=== PATIENT | male | born 1950 | race Caucasian/White ===

== ENCOUNTER 2016-07-08 13:33 | Outpatient (CLI) | payer BC | END 2016-07-08 13:34 | disposition home or self-care (01) | DX: M17.11 Unilateral primary osteoarthritis, right knee (principal); M19.012 Primary osteoarthritis, left shoulder; M25.812 Other specified joint disorders, left shoulder; M25.561 Pain in right knee; M25.512 Pain in left shoulder ==

== ENCOUNTER 2017-03-07 12:58 | Outpatient (CLI) | payer MEDICARE, BC | END 2017-03-07 12:59 | disposition home or self-care (01) | LOC: SC 12:58 | PROVIDERS: ATTEND Internal Medicine Pulmonary Disease | DX: G47.33 Obstructive sleep apnea (adult) (pediatric) (principal); I10 Essential (primary) hypertension; I50.9 Heart failure, unspecified; I25.10 Atherosclerotic heart disease of native coronary artery without angina pectoris | CPT/HCPCS: 99203; G0463; 99212 ==

== ENCOUNTER 2017-04-03 19:19 | Outpatient (CLI) | payer MEDICARE, BC | END 2017-04-03 19:20 | disposition home or self-care (01) | LOC: SC 19:19 | PROVIDERS: ATTEND Internal Medicine Pulmonary Disease | DX: G47.33 Obstructive sleep apnea (adult) (pediatric) (principal); Z68.42 Body mass index [BMI] 45.0-49.9, adult | CPT/HCPCS: 95810 ==

== ENCOUNTER 2017-04-13 14:50 | Outpatient (CLI) | payer MEDICARE, BC | END 2017-04-13 14:51 | disposition home or self-care (01) | LOC: SC 14:50 | PROVIDERS: ATTEND Nurse Practitioner Family | DX: G47.33 Obstructive sleep apnea (adult) (pediatric) (principal) | CPT/HCPCS: 99214; G0463; 99212 ==

== ENCOUNTER 2017-05-30 10:23 | Outpatient (CLI) | payer MEDICARE, BC | END 2017-05-30 10:24 | disposition home or self-care (01) | LOC: SC 10:23 | PROVIDERS: ATTEND Nurse Practitioner Family | DX: G47.33 Obstructive sleep apnea (adult) (pediatric) (principal) | CPT/HCPCS: 99214; G0463; 99212 ==

== ENCOUNTER 2017-07-10 09:10 | Outpatient (CLI) | payer MEDICARE, BC | END 2017-07-10 09:11 | disposition home or self-care (01) | LOC: RT 09:10 | PROVIDERS: ATTEND Internal Medicine Cardiovascular Disease | DX: R06.02 Shortness of breath (principal) | CPT/HCPCS: 94010; 94729 ==

== ENCOUNTER 2017-08-01 09:49 | Outpatient (CLI) | payer MEDICARE, BC | END 2017-08-01 09:50 | disposition home or self-care (01) | LOC: SC 09:49 | PROVIDERS: ATTEND Nurse Practitioner Family | DX: G47.33 Obstructive sleep apnea (adult) (pediatric) (principal) | CPT/HCPCS: 99214; G0463; 99212 ==

== ENCOUNTER 2017-08-25 12:39 | Outpatient (CLI) | payer MEDICARE, BC | END 2017-08-25 12:40 | disposition home or self-care (01) | LOC: NS 12:39 | PROVIDERS: ATTEND Physician Assistant | DX: Z71.3 Dietary counseling and surveillance (principal); E11.9 Type 2 diabetes mellitus without complications; E78.2 Mixed hyperlipidemia; E66.01 Morbid (severe) obesity due to excess calories; Z79.84 Long term (current) use of oral hypoglycemic drugs; Z68.42 Body mass index [BMI] 45.0-49.9, adult | CPT/HCPCS: 97802 ==

== ENCOUNTER 2017-10-03 11:17 | Outpatient (CLI) | payer MEDICARE, BC | END 2017-10-03 11:18 | disposition home or self-care (01) | LOC: SC 11:17 | PROVIDERS: ATTEND Nurse Practitioner Family | DX: G47.33 Obstructive sleep apnea (adult) (pediatric) (principal); G47.00 Insomnia, unspecified | CPT/HCPCS: 99214; G0463; 99212 ==

== ENCOUNTER 2017-11-28 14:59 | Outpatient (CLI) | payer MEDICARE, BC | END 2017-11-28 15:00 | disposition home or self-care (01) | LOC: RT 14:59 | PROVIDERS: ATTEND Orthopaedic Surgery | DX: Z01.810 Encounter for preprocedural cardiovascular examination (principal) | CPT/HCPCS: 93005 ==

== ENCOUNTER 2020-02-05 10:10 | Outpatient (CLI) | payer MEDICARE, BC | END 2020-02-05 10:11 | disposition critical access hospital (66) | LOC: EMS 10:10 | PROVIDERS: ATTEND Surgery | DX: R53.1 Weakness (principal); R41.82 Altered mental status, unspecified; R11.2 Nausea with vomiting, unspecified | CPT/HCPCS: A0425; A0427 ==

== ENCOUNTER 2020-02-05 10:20 | Observation (INO) | payer MEDICARE, BC ==
--- NOTE | 2020-02-05 10:29 | ED Physician Documentation ---
PD HPI ALTERED MENTAL STATUS - Stated complaint Stated Complaint: POSS STROKE - History obtained from History obtained from: Patient, EMS - History of Present Illness Timing - onset: How many days ago (3) Timing - details: Gradual onset, Still present Quality / character: Confused, Other (general weakness) Associated symptoms: Cough, General weakness. No: Dyspnea, Urinary sx, Focal weakness Contributing factors: Recent illness (some cough the past few days. No noted fevers.). No: Anticoagulated, Recent med change, Recent injury, Intoxicated Basline status: Alert and oriented X 3, Ambulatory Treatment DIVE MASTER: Accucheck Similar symptoms before: Has not had sx before Recently seen: Not recently seen Review of Systems Unable to obtain: Other (info from as well) Constitutional: reports: Myalgias, Fatigue. denies: Fever Nose: denies: Rhinorrhea / runny nose, Congestion Throat: denies: Sore throat Cardiac: denies: Chest pain / pressure Respiratory: reports: Cough. denies: Dyspnea, Wheezing GI: reports: Diarrhea (chronic loose). denies: Abdominal Pain, Vomiting, Bloody / black stool : denies: Dysuria Skin: denies: Rash, Lesions Neurologic: reports: Generalized weakness, Confused, Altered mental status. denies: Focal weakness, Difficulty speaking, Headache PD PAST MEDICAL HISTORY - Past Medical History Cardiovascular: Congestive heart failure, Hypertension Respiratory: Asthma Neuro: Dementia Endocrine/Autoimmune: None - Present Medications Home Medications: Ambulatory Orders Medication Instructions Recorded Confirmed Aspirin [Aspirin EC] 81 mg PO DAILY 02/05/20 02/05/20 Atorvastatin Calcium 80 mg PO QPM 02/05/20 02/05/20 Duloxetine HCl [Cymbalta] 60 mg PO DAILY 02/05/20 02/05/20 Furosemide 20 mg PO DAILY 02/05/20 02/05/20 Gabapentin 1,200 mg PO TID 02/05/20 02/05/20 Metoprolol Succinate 50 mg PO DAILY 02/05/20 02/05/20 Morphine Sulfate ER [Ms Contin] 30 mg PO BID 02/05/20 02/05/20 Zolpidem Tartrate 10 mg PO DAILY PM 02/05/20 02/05/20 buPROPion HCL [Bupropion HCl Sr] 150 mg PO TID 02/05/20 02/05/20 lisinopriL [Lisinopril] 5 mg PO DAILY 02/05/20 02/05/20 metFORMIN [Glucophage] 500 mg PO BIDWM 02/05/20 02/05/20 - Allergies Allergies/Adverse Reactions: Allergies Allergy/AdvReac Type Severity Reaction Status Date / Time Sulfa (Sulfonamide Allergy Unknown Verified 02/05/20 11:29 Antibiotics) Tetracyclines Allergy Unknown Verified 02/05/20 11:29 PD ED PE NORMAL - Vitals Vital signs reviewed: Yes - General General: No acute distress, Well developed/nourished. No: Alert and oriented X 3 (oriented to person and place, seems confused on time and recent events. ) - HEENT HEENT: Atraumatic, Pharynx benign - Neck Neck: Supple, no meningeal sign, No adenopathy - Cardiac Cardiac: RRR, No murmur - Respiratory Respiratory: No: Clear bilaterally (some mild wheezing noted, and faint coarse sounds right) - Abdomen Abdomen: Normal bowel sounds, Soft, Non tender, Non distended - Male Male : Deferred - Rectal Rectal: Deferred - Back Back: No CVA TTP - Derm Derm: Normal color, Warm and dry - Extremities Extremities: Normal ROM s pain, No edema, No calf tenderness / cord - Neuro Neuro: No motor deficit Eye Opening: To Voice Motor: Obeys Commands Verbal: Confused (time and recent events (past few days)) GCS Score: 13 Results - Vitals Vitals: Vital Signs - 24 hr 02/05/20 02/05/20 02/05/20 10:34 11:00 11:34 Temperature 36.1 C L 36.7 C Heart Rate 97 90 87 Respiratory 22 20 12 Rate Blood Pressure 141/80 H 113/85 H 135/72 H O2 Saturation 99 100 100 02/05/20 02/05/20 02/05/20 12:00 12:30 13:01 Temperature 37.8 C H Heart Rate 98 110 H 106 H Respiratory 12 12 16 Rate Blood Pressure 132/72 H 131/75 H 140/72 H O2 Saturation 97 98 100 Oxygen O2 Source Room air - EKG (time done) 10:33 Rate: Rate (enter#) (95) Rhythm: NSR [place]: Normal Intervals: Normal [place] Ischemia: Normal ST segments, Non specific changes (t wave flattening). No: ST elevation c/w ischemia, ST depression - Labs Labs: Laboratory Tests 02/05/20 02/05/20 02/05/20 10:42 10:42 10:42 WBC 11.9 H RBC 4.33 L Hgb 14.4 Hct 41.6 L MCV 96.1 H MCH 33.3 H MCHC 34.6 RDW 12.0 Plt Count 241 MPV 9.5 Neut # (Auto) 9.7 H Lymph # (Auto) 1.6 [place] # (Auto) 0.5 Eos # (Auto) 0.0 Baso # (Auto) 0.0 Absolute Nucleated RBC 0.00 Nucleated RBC % 0.0 Sodium 134 L Potassium 3.7 Chloride 98 L Carbon Dioxide 15 L Anion Gap 21.0 H BUN 27 H Creatinine 0.9 Estimated GFR (MDRD) 84 L Glucose 181 H Glycated Hemoglobin Estim Average Glucose Lactic Acid 2.9 H Calcium 9.6 Magnesium 1.8 Total Bilirubin 1.3 H AST 27 ALT 26 Alkaline Phosphatase 69 Total Protein 8.0 Albumin 4.5 Globulin 3.5 Albumin/Globulin Ratio 1.3 Lipase 21 L TSH Urine Color Urine Clarity Urine pH Ur Specific [place] Urine Protein Urine Glucose (UA) Urine Ketones Urine Occult Blood Urine Nitrite Urine Bilirubin Urine Urobilinogen Ur Leukocyte Esterase Urine RBC Urine WBC Urine WBC Clumps Ur Squamous Epith Cells Urine Bacteria Ur Microscopic Review Urine Culture Comments Salicylates < 6.0 Urine Opiates Screen Ur Oxycodone Screen Urine Methadone Screen Ur Propoxyphene Screen Acetaminophen < 10 L Ur Barbiturates Screen Ur Tricyclics Screen Ur Phencyclidine Scrn Ur Amphetamine Screen U Methamphetamines Scrn U Benzodiazepines Scrn Urine Cocaine Screen U Cannabinoids Screen Ethyl Alcohol < 5.0 02/05/20 02/05/20 02/05/20 10:42 10:42 12:12 WBC 11.5 H RBC 4.15 L Hgb 13.7 L Hct 41.6 L MCV 100.2 H MCH 33.0 H MCHC 32.9 RDW 12.1 Plt Count 191 MPV 9.3 Neut # (Auto) 10.1 H Lymph # (Auto) 0.7 L [place] # (Auto) 0.6 Eos # (Auto) 0.0 Baso # (Auto) 0.0 Absolute Nucleated RBC 0.00 Nucleated RBC % 0.0 Sodium Potassium Chloride Carbon Dioxide Anion Gap BUN Creatinine Estimated GFR (MDRD) Glucose Glycated Hemoglobin 5.8 Estim Average Glucose 120 H Lactic Acid Calcium Magnesium Total Bilirubin AST ALT Alkaline Phosphatase Total Protein Albumin Globulin Albumin/Globulin Ratio Lipase TSH 0.87 Urine Color Urine Clarity Urine pH Ur Specific [place] Urine Protein Urine Glucose (UA) Urine Ketones Urine Occult Blood Urine Nitrite Urine Bilirubin Urine Urobilinogen Ur Leukocyte Esterase Urine RBC Urine WBC Urine WBC Clumps Ur Squamous Epith Cells Urine Bacteria Ur Microscopic Review Urine Culture Comments Salicylates Urine Opiates Screen Ur Oxycodone Screen Urine Methadone Screen Ur Propoxyphene Screen Acetaminophen Ur Barbiturates Screen Ur Tricyclics Screen Ur Phencyclidine Scrn Ur Amphetamine Screen U Methamphetamines Scrn U Benzodiazepines Scrn Urine Cocaine Screen U Cannabinoids Screen Ethyl Alcohol 02/05/20 02/05/20 02/05/20 12:12 12:12 13:25 WBC RBC Hgb Hct MCV MCH MCHC RDW Plt Count MPV Neut # (Auto) Lymph # (Auto) [place] # (Auto) Eos # (Auto) Baso # (Auto) Absolute Nucleated RBC Nucleated RBC % Sodium 136 Potassium 3.4 L Chloride 100 L Carbon Dioxide 20 L Anion Gap 16.0 H BUN 26 H Creatinine 0.9 Estimated GFR (MDRD) 84 L Glucose 161 H Glycated Hemoglobin Estim Average Glucose Lactic Acid 2.0 Calcium 9.1 Magnesium Total Bilirubin 1.6 H AST 27 ALT 24 Alkaline Phosphatase 65 Total Protein 7.7 Albumin 4.3 Globulin 3.4 Albumin/Globulin Ratio 1.3 Lipase TSH Urine Color YELLOW Urine Clarity CLEAR Urine pH 5.5 Ur Specific [place] 1.025 Urine Protein TRACE Urine Glucose (UA) NEGATIVE Urine Ketones >=80 H Urine Occult Blood SMALL H Urine Nitrite NEGATIVE Urine Bilirubin NEGATIVE Urine Urobilinogen 0.2 (NORMAL) Ur Leukocyte Esterase NEGATIVE Urine RBC 0-5 Urine WBC 6-10 H Urine WBC Clumps PRESENT Ur Squamous Epith Cells FEW Squamous Urine Bacteria Few Ur Microscopic Review INDICATED Urine Culture Comments INDICATED Salicylates Urine Opiates Screen POSITIVE H Ur Oxycodone Screen NEGATIVE Urine Methadone Screen NEGATIVE Ur Propoxyphene Screen NEGATIVE Acetaminophen Ur Barbiturates Screen NEGATIVE Ur Tricyclics Screen NEGATIVE Ur Phencyclidine Scrn NEGATIVE Ur Amphetamine Screen NEGATIVE U Methamphetamines Scrn NEGATIVE U Benzodiazepines Scrn NEGATIVE Urine Cocaine Screen NEGATIVE U Cannabinoids Screen POSITIVE H Ethyl Alcohol - Rads (name of study) head CT Radiology: Prelim report reviewed (no acute abnormalities), See rad report chest xray Radiology: Prelim report reviewed (right lower infiltrates and effusion. Consider infectious cause. ), See rad report PD MEDICAL DECISION MAKING - ED course Complexity details: reviewed results (Has elevated WBC and initial elevated lactate. CXR with infiltrate in base, consider infectious. ), considered differential (gradual weakness and confusion over 3 days. Consider sepsis, infection, medication related, metabolic process as major problems.), d/w patient, d/w database reporting consultant (hospitalist) ED course: General weakness and confused per . Has some SIRs criteria. Lactate is normal though. Consider infectious cause of his weakness and confusion. No change in meds at home, to account for symptoms. Labs otherwise okay, and head CT without acute process. Departure - Departure Disposition: ED Place in Observation Clinical Impression: Confusion, Weakness generalized, SIRS (systemic inflammatory response syndrome), Lung infiltrate Condition: Stable Record reviewed to determine appropriate education?: Yes Discharge Date/Time: 02/05/20 15:03
--- NOTE | 2020-02-05 10:42 | CT Report ---
PROCEDURE: HEAD WO INDICATIONS: confusion for 3 days TECHNIQUE: Noncontrast 4.5 mm thick angled axial sections acquired from the foramen magnum to the vertex. For r adiation dose reduction, the following was used: automated exposure control, adjustment of mA and/or kV according to patient size. COMPARISON: None. FINDINGS: Image quality: Motion artifact is noted, with nonvisualization of approximately 20% of the intracra nial contents. CSF spaces: Basal cisterns are patent. No extra-axial fluid collections. Ventricles are normal in size and shape. Brain: No midline shift. No intracranial masses or hemorrhage. Heller-white matter interface is norm al. Skull and face: Calvarium and visualized facial bones are intact, without suspicious lesions. Sinuses: Visualized sinuses and mastoids are clear. IMPRESSION: The limits of this study, no definite intracranial abnormality is seen. The study is highly limited, with approximately 20% of the intracranial contents not seen. Please con tack maker a repeat examination when the patient is able to hold still. Reviewed by: Mark Rivera MD on 02/05/2020 9:40 AM [place] Approved by: Mark Rivera MD on 02/05/2020 9:40 AM [place] Station ID: [id number]
[2020-02-05 10:48] LABS: BASOPHILS % (AUTO) 0.3 %; EOSINOPHILS % (AUTO) 0.1 %; HGB - HEMOGLOBIN 14.4 g/dL (14.0-18.0); LYMPHOCYTES # (AUTO) 1.6 10^3/uL (1.5-3.5); LYMPHOCYTES % (AUTO) 13.3 %; MEAN CORPUSCULAR HEMOGLOBIN 33.3 pg (27.0-31.0); MEAN CORPUSCULAR HGB CONC 34.6 g/dL (32.0-36.0); MEAN CORPUSCULAR VOLUME 96.1 fL (80.0-94.0); MEAN PLATELET VOLUME 9.5 fL (7.4-11.4); MONOCYTES # (AUTO) 0.5 10^3/uL (0.0-1.0); MONOCYTES % (AUTO) 4.1 %; NEUTROPHILS # (AUTO) 9.7 10^3/uL (1.5-6.6); NEUTROPHILS % (AUTO) 81.8 %; PLT - PLATELET COUNT 241 10^3/uL (130-450); RED BLOOD COUNT 4.33 10^6/uL (4.70-6.10); WHITE BLOOD COUNT 11.9 x10^3/uL (4.8-10.8)
[2020-02-05 11:04] LABS: ACETAMINOPHEN < 10 ug/mL (10-30); ALBUMIN 4.5 g/dL (3.2-5.5); ALBUMIN/GLOBULIN RATIO 1.3 (1.0-2.2); ALKALINE PHOSPHATASE 69 IU/L (42-121); ALT ALANINE AMINOTRANSFERASE 26 IU/L (10-60); AST ASPARTATE AMINOTRANSFERASE 27 IU/L (10-42); BILIRUBIN,TOTAL 1.3 mg/dL (0.2-1.0); BUN - BLOOD UREA NITROGEN 27 mg/dL (6-20); CALCIUM 9.6 mg/dL (8.5-10.3); CARBON DIOXIDE - CO2 15 mmol/L (21-32); CHLORIDE 98 mmol/L (101-111); CREATININE 0.9 mg/dL (0.6-1.2); GLUCOSE 181 mg/dL (70-100); LIPASE 21 U/L (22-51); MAGNESIUM 1.8 mg/dL (1.7-2.8); SALICYLATE < 6.0 mg/dL; SODIUM 134 mmol/L (135-145)
[2020-02-05] MEDS ORDERED: SODIUM CHLORIDE 0.9% 1,000 ML IV STA (11:12)
[2020-02-05] MEDS ORDERED: LORazepam 2 MG/ML VIAL IVP STA (11:12)
--- NOTE | 2020-02-05 11:19 | XRAY Report ---
PROCEDURE: Chest 1 View X-Ray INDICATIONS: chest pain TECHNIQUE: One view of the chest was acquired. COMPARISON: None. FINDINGS: Surgical changes and devices: None. Lungs and pleura: Minimal streaky bibasilar opacities with small right pleural effusion. No pneumotho rax. Mediastinum: Mediastinal contours appear normal. Heart size is normal. Bones and chest wall: No suspicious bony lesions. Overlying soft tissues appear unremarkable. IMPRESSION: Ill-defined right costophrenic angle opacities and small right pleural effusion. Findings may represe nt infectious versus inflammatory process. Early pulmonary edema not completely excluded. Consider follow-up imaging to document resolution of findings. Reviewed by: Rodrigo Gale MD on 02/05/2020 11:17 AM PDT Approved by: Rodrigo Gale MD on 02/05/2020 11:17 AM PDT Station ID: [id number]
[2020-02-05] MEDS ORDERED: SODIUM CHLORIDE 0.9% IV STA (11:49)
[2020-02-05] MEDS ORDERED: CEFEPIME 2 GM in SODIUM CHLORIDE 0.9% MINIBAG 100 ML IV STA (11:49)
[2020-02-05] MEDS ORDERED: VANCOMYCIN INJ 2.5 GM in SODIUM CHLORIDE 0.9% 500 ML IV STA (11:49)
[2020-02-05 12:19] LABS: BASOPHILS % (AUTO) 0.2 %; EOSINOPHILS % (AUTO) 0.1 %; HGB - HEMOGLOBIN 13.7 g/dL (14.0-18.0); LYMPHOCYTES # (AUTO) 0.7 10^3/uL (1.5-3.5); LYMPHOCYTES % (AUTO) 6.2 %; MEAN CORPUSCULAR HGB CONC 32.9 g/dL (32.0-36.0); MEAN CORPUSCULAR VOLUME 100.2 fL (80.0-94.0); MEAN PLATELET VOLUME 9.3 fL (7.4-11.4); MONOCYTES # (AUTO) 0.6 10^3/uL (0.0-1.0); MONOCYTES % (AUTO) 5.3 %; NEUTROPHILS # (AUTO) 10.1 10^3/uL (1.5-6.6); NEUTROPHILS % (AUTO) 87.7 %; PLT - PLATELET COUNT 191 10^3/uL (130-450); RED BLOOD COUNT 4.15 10^6/uL (4.70-6.10); RED CELL DISTRIBUTION WIDTH 12.1 % (12.0-15.0); WHITE BLOOD COUNT 11.5 x10^3/uL (4.8-10.8)
[2020-02-05 12:31] LABS: ALBUMIN 4.3 g/dL (3.2-5.5); ALBUMIN/GLOBULIN RATIO 1.3 (1.0-2.2); BILIRUBIN,TOTAL 1.6 mg/dL (0.2-1.0); CALCIUM 9.1 mg/dL (8.5-10.3); CREATININE 0.9 mg/dL (0.6-1.2); TOTAL PROTEIN 7.7 g/dL (6.7-8.2)
[2020-02-05 13:27] LABS: MUDS CUTOFF CONCENTRATIONS CUTOFF CONC BELOW:
[2020-02-05] MEDS ORDERED: SODIUM CHLORIDE FLUSH 0.9% 10 ML SYRINGE IVP PRN (13:30)
[2020-02-05 13:37] LABS: BILIRUBIN,URINE NEGATIVE (NEGATIVE); GLUCOSE, URINE (UA) NEGATIVE (NEGATIVE); KETONES,URINE (UA) >=80 mg/dL (NEGATIVE); LEUKOCYTE ESTERASE, URINE NEGATIVE (NEGATIVE); NITRITE,URINE NEGATIVE (NEGATIVE); OCCULT BLOOD,URINE SMALL (NEGATIVE); PH,URINE 5.5 PH (5.0-7.5); PROTEIN,URINE TRACE mg/dL (NEGATIVE); UROBILINOGEN,URINE 0.2 (NORMAL) E.U./dL (NORMAL)
[2020-02-05 13:43] LABS: CLARITY,URINE CLEAR (CLEAR)
[2020-02-05 13:54] LABS: OPIATE SCREEN, URINE POSITIVE (NEGATIVE)
[2020-02-05 13:55] LABS: AMPHETAMINE SCREEN,URINE NEGATIVE (NEGATIVE); BENZODIAZEPINES SCREEN, URINE NEGATIVE (NEGATIVE); COCAINE SCREEN URINE NEGATIVE (NEGATIVE); METHADONE SCREEN, URINE NEGATIVE (NEGATIVE); METHAMPHETAMINES SCREEN, URINE NEGATIVE (NEGATIVE); OXYCODONE SCREEN, URINE NEGATIVE (NEGATIVE); PROPOXYPHENE SCREEN, URINE NEGATIVE (NEGATIVE); TRICYCLIC ANTIDEPRESSANT,URINE NEGATIVE (NEGATIVE)
[2020-02-05 14:02] LABS: BACTERIA,URINE Few /HPF (None Seen); RBC,URINE 0-5 /HPF (0-5); WBC CLUMPS,URINE PRESENT
[2020-02-05 14:03] LABS: SQUAMOUS EPITHELIAL CELL,UR FEW Squamous (<= Few)
--- NOTE | 2020-02-05 14:03 | HISTORY & PHYSICAL EXAMINATION ---
Chief Complaint - Chief Complaint Chief Complaint: per , was last himself ~ Tuesday , slowly progressively weaker, History of Present Illness - Admitted From Admitted From:: ED, - History Obtained From Records Reviewed: ED notes reviewed and d/w Dr Díaz, med record reviewed History obtained from: ED MD (Arjun) and , patient minimally contributory re: history - History of Present Illness HPI Comment/Other: 69 yo male presented with several days persistently worsening generalized weakness, nonfocal weakness, and progressively confused per Patient seen by Dr Levin for treatment of bladder CA with a chemo agent q3 weeks since Jul per (she is unsure of name of drug), is is always a little punk for a few days after, but recovers She thought he was last his normal self mid week last week, but worse since . He had been on oxycodone 5 mg 4-6 pills / day for back pain related to cancer, but was started on MS contin 30 mg bid on Tuesday by oncologist No other change in medications Per has hardly eaten or drank in last 3 days, vomited at least once in 3 days, but she did not see No BM in several days, no diarhea, no dysuria, no cough, no shortness of breath is not on stool softener for constipation prevention on opiate Afebrile, no fever or chills at home , no hypotension , adequate BP in ED SBP 141/80, 113/85, 131/75 HR upper 90's, 110 Mild WBC elevation 11.9, no bands, Lactate 2.9 improved to 2.0 after ~ 1.5L in ED per Dr Díaz, Dr Díaz suggested possible sepsis, CXR w/ bibasilar infiltrates, no tachypnea (RR 12-16, RA Sa02 100%) Ua Sg 1.025 Tox + opioate (ms contin bid) , + cannnabinoid (since chemo started he vapes marijana some) Of note BUN/Cr elevated in prerenal ratio, and several medications which may have adverse affect in 69 yo with volume depletion (gabapentin, 30 bid MS contin, cymbalta Also takes zolpidem nightly History - Past Medical History Cardiovascular: reports: High cholesterol, Coronary artery disease, NC (Per NC x 2 in 1999,s/p stent, details not available, symptoms at the time were chest pain/pressure and dyspepsia, ) Respiratory: reports: None Neuro: reports: None Endocrine/Autoimmune: reports: None : reports: Other HEENT: reports: Chronic vision loss, Chronic hearing loss Psych: reports: None Musculoskeletal: reports: Chronic back pain Derm: reports: None MRSA Hx?: No Other Past Medical History: umbilical hernia. bladder cancer with immunotherapy - Past Surgical History Cardiovascular: reports: Coronary stent, Cardiac catheterization - Family & Social History Family History: Mother: (of old age), Father: CAD ( in 50s when patient age 13), Sister: Cancer (1/2 sister and brother), Brother: Cancer Living arrangement: At home, Other (lives with at home, they moved here / retired here 20 yrs ago from [place], he was in [email or web address], [employer] business and worked for [employer] service) - POLST Patient has POLST: No Meds/Allgy - Home Medications Home Medications: Ambulatory Orders Medication Instructions Recorded Confirmed Aspirin [Aspirin EC] 81 mg PO DAILY 02/05/20 02/05/20 Atorvastatin Calcium 80 mg PO QPM 02/05/20 02/05/20 Duloxetine HCl [Cymbalta] 60 mg PO DAILY 02/05/20 02/05/20 Furosemide 20 mg PO DAILY 02/05/20 02/05/20 Gabapentin 1,200 mg PO TID 02/05/20 02/05/20 Metoprolol Succinate 50 mg PO DAILY 02/05/20 02/05/20 Zolpidem Tartrate 10 mg PO DAILY PM 02/05/20 02/05/20 lisinopriL [Lisinopril] 5 mg PO DAILY 02/05/20 02/05/20 metFORMIN [Glucophage] 500 mg PO BIDWM 02/05/20 02/05/20 Senna [Senokot] 8.6 mg PO BID tablet 02/06/20 oxyCODONE [Roxicodone] 5 mg PO Q6H PRN tablet 02/06/20 polyethylene glycoL 3350 [Miralax] 17 gm PO DAILY PRN packet 02/06/20 - Allergies Allergies/Adverse Reactions: Allergies Allergy/AdvReac Type Severity Reaction Status Date / Time Sulfa (Sulfonamide Allergy Unknown Verified 02/05/20 11:29 Antibiotics) Tetracyclines Allergy Unknown Verified 02/05/20 11:29 Review of Systems - Constitutional Constitutional: reports: Chills (last few days occas chills, mostly diaphoreses), Poor appetite (x 3 days hardly po intake), Weight loss ( reports ~ 50 lb wt loss since start of chemotherapy in Jul), Other (reports occasional drenching sweats). denies: Fever - Eyes Eyes: reports: Vision loss (per eyes dont track evenly) - Ears, Nose & Throat Ears, Nose & Throat: reports: Hearing loss - Cardiovascular Cariovascular: reports: Edema (hx of LE edema in past, none since on lasix). denies: Palpitations, Chest pain, Syncope, Exertional dyspnea - Respiratory Respiratory: denies: Cough, Sputum production, Wheezing, Orthopnea - Gastrointestinal Gastrointestinal: reports: Constipation, Change in bowel habits, Vomiting (as per HPI, didnt see, but at least x 1 in last few days), Poor appetite (as per HPI). denies: Abdominal pain, Abdominal distention - Genitourinary Genitourinary: denies: Dysuria, Frequency, Urgency, Hematuria, Flank pain - Musculoskeletal Musculoskeletal: reports: Muscle weakness (generalized weakness as per HPI), Other (no falls) - Integumentary Integumentary: denies: Rash, Pruritis - Neurological Neurological: reports: General weakness (as per HPI). denies: Focal weakness, Abnormal gait, Seizures, Incoordination - Psychiatric Psychiatric: reports: Other (no longer taking buproprion per ). denies: Depression - Hematologic/Lymphatic Hematologic/Lymphatic: denies: Bruising, Petechiae, Blood clots Prior Level of Functionality: per , usually does alot of gardening, hasnt done that the past week Exam - Vital Signs Reviewed Vital Signs: Yes Vital Signs: Vital Signs x48h Temp Pulse Resp BP Pulse Ox 02/05/20 13:30 37.5 C 107 H 21 139/69 H 100 02/05/20 13:01 37.8 C H 106 H 16 140/72 H 100 02/05/20 12:30 110 H 12 131/75 H 98 02/05/20 12:00 98 12 132/72 H 97 02/05/20 11:34 36.7 C 87 12 135/72 H 100 02/05/20 11:00 90 20 113/85 H 100 02/05/20 10:34 36.1 C L 97 22 141/80 H 99 - Physical Exam General Appearance: positive: No acute distress, Alert (alert but not able to answer orientation questions re: where we are, date , month, season, wouldnt name , "who is that" Does answer questions re current symptoms. Very annoyed by his cone face mask), Other (heavy set beardedman, nontoxic lying on stretcher , present) Neck: positive: Nml inspection, Other (full neck, missing multiple front teeth, tongue dry) Respiratory: positive: Chest non-tender, No respiratory distress, Breath sounds nml, Other (Portacath R chest, site unremarkable) Cardiovascular: positive: Regular rate & rhythm, No murmur Peripheral Pulses: positive: 2+ Back: positive: Other (no spine tenderness). negative: CVA tenderness (R), CVA tenderness (L) Skin: positive: Warm, Dry. negative: No rash, Diaphoresis, Pallor, Skin rash Extremities: positive: Non-tender, Other (rolls to side for chest exam without problem). negative: Pedal edema Neurologic/Psychiatric: positive: Motor nml, Sensation nml, Disoriented to person, Disoriented to place, Disoriented to time (just said um, and couldnt come up with orientation answers (did not try to answer; I dont know, who cares). negative: Oriented x3 (eyes dont track evenly (baseline), visual acuity ok (read paper), smile symmetric,), Facial droop Conclusion/Plan - Problem List (1) Acute delirium Conclusion/Plan: Several drug drug interactions possible in setting of volume depletion (ms contin, gabapentin) Infection in DDX and SIRS noted by ED (but only 1 SIRS element w/ HR > 90, afebrile, RR not > 20 (actually hypoventilatory), WBC under 12K, and suspect elevated lactate is related to volume depletion rather than an acute infectious process. With no tachypnea, and bibasilar infiltrate, and RA sat 100%, bibasilar opacities more likley c/w atelectasis in setting of hypoventilation than infection Got cefepime and Vanco in ED , but holding on ABX given afeb, normal Sa02, no other clinical findings suggstive of infxn Hold gabapentin If needs opiate for pain will tr to use short acting or reduce to ms contin 15 Will get PT eval in am if not improved since has been weak x 4-5 days now due to the delerium (2) Volume depletion Conclusion/Plan: related to poor PO intake w/ opiate induced constipation, continued daily Lasix Suspect sl elevated lactate /t volume depletion not sepsis, Lactate as noted 2.0 after ~ 1.5 L Blood cultures done in ED; will f/u but do not suspect bacteremia nor that this is sepsis CXR and clinical findings and Hx more suggestive of bibasilar atelectasis in setting of hypoventilation than infectious infiltrate (if any change in pulm exam, sat will reeval; not continuing ABX) UA w/ a few WBC, few bacteria, no symptoms, will consider recheck in AM recheck BMP, WBC in am Hold lasix NS a 125 x 1 L, then 100/hr, (no hx CHF) (3) Medication side effect Conclusion/Plan: I suspect his generalized confusion and weakness is combined effect of opiate induced constipation, poor PO intake, and continued to take new Long acting opiate (30 bid mscontin); which is more that his daily short acting opiate dose of ~ 20-30 mg/ day oxcodone until last tuesday all worsened also by some volume depletion Plan; IV volume repletion Hold ms contin (prn short acting oxycodone if needs) Hold gabapentin (brief hold ok) Hold zolpidem reevaluate neuro exam after hydration. (4) Constipation due to opioid therapy Conclusion/Plan: Lactulose 30 mg PO x 1 start miralax and bid senna\\ Will add bowel regimen at the time of discharge (5) Coronary artery disease Conclusion/Plan: stable, no ischemic symptoms continue asa, statin and beta sasha (6) Leukocytosis Conclusion/Plan: mild, no bandemia, as noted no clear site of infection suspect related to volume depletion, (and lactate 2.9 r/t volume depletion); Recheck in am (7) Diabetes Conclusion/Plan: on metformin at home hold metformin mild elevation (161 on admit) low dose correctional for now , reevaluate in am (8) No contraindication to venous thromboembolism (VTE) prophylaxis Conclusion/Plan: lovenox 40 mg daily (has active malignancy); If much more mobile tomorrow, gini rizo will d/c as otherwise low risk (9) Depression Conclusion/Plan: Mood stable, continue home cymbalta no longer on buproprion Code status; full confimred with - Lab Results Lab results reviewed: Yes Fish Bones: 02/06/20 05:10 02/06/20 05:10 Other Lab Results: UA 1.025 SG, clear, small blood, 0-5 %BC , 6-10 WBC, few squaous - Diagnostic Imaging Results Diagnostic Imaging Results: positive: Final report reviewed Diagnostic Imaging Results Comments: Head CT, motion artifact, within limits of study, no intracranial abnormality noted. very limited; ~ 20% of intracranial contents not seen due to artifact Chest X ray; Ill defined R costophrenic angle apacities and small R pleural effusion, could be infectious vs inflammatory, minimal streaky bibasilar opacities w/ small R pleural effusion - EKG Results EKG Interpreted Independently: Yes EKG Findings: EKG NSR rate just under 100, L axisTW flattening sl TWI verito, oldQ v2, V1,V2, V3, V4 c/w EKG no change . [place] now more l
[2020-02-05] MEDS ORDERED: polyethylene glycoL 3350 17 GM PACKET PO PRN (15:17)
[2020-02-05] MEDS ORDERED: LACTULOSE 10 GM /15 ML UDC PO ONE (15:34)
[2020-02-05] MEDS ORDERED: SODIUM CHLORIDE 0.9% 1,000 ML IV SCH (16:00)
[2020-02-05] MEDS: SODIUM CHLORIDE FLUSH 0.9% 10 ML SYRINGE IVP SCH (16:17)
[2020-02-05] MEDS ORDERED: oxyCODONE 5 MG TABLET PO PRN (16:50)
--- NOTE | 2020-02-05 17:00 | PHARMACY PROGRESS NOTE ---
- Best Possible Medication History Admit Date and Time: 02/05/20 1330 Processed by: Nursing Medication History completed: Yes As the person ultimately responsible for medication therapy, providers are able to order a medication from an existing home medication list in [facility] via the "Reconcile Routine" prior to Confirmation of that medication by patient support assistant. Such practice is discouraged except when the physician, in their clinical judgment, deems that a medical need exists for a medication without regard to previous use.
[2020-02-05 18:37] LABS: HEMOGLOBIN A1C 0.6 g/dL; HEMOGLOBIN A1C % 5.8 % (4.6-6.2)
[2020-02-05] MEDS: INSULIN ASPART 300 UNIT/3 ML PEN SUBQ SCH ×2 (18:42→21:13)
[2020-02-05] MEDS ORDERED: diphenhydrAMINE 25 MG CAPSULE PO PRN (20:00)
[2020-02-05] MEDS ORDERED: ATORVASTATIN 40 MG TABLET PO SCH (21:00)
[2020-02-05] MEDS: SENNA 8.6 MG TABLET PO SCH (21:13)
[2020-02-05] MEDS ORDERED: buPROPion SR 150 MG TABLET PO SCH (22:00)
[2020-02-06] MEDS ORDERED: SODIUM CHLORIDE 0.9% 1,000 ML IV SCH
[2020-02-06] MEDS: ONDANSETRON 4 MG/2 ML VIAL IVP PRN ×3 (00:01→10:25)
[2020-02-06] MEDS: SODIUM CHLORIDE FLUSH 0.9% 10 ML SYRINGE IVP SCH ×2 (00:28→08:05)
[2020-02-06 05:26] LABS: HGB - HEMOGLOBIN 11.9 g/dL (14.0-18.0); MEAN CORPUSCULAR HEMOGLOBIN 33.2 pg (27.0-31.0); MEAN CORPUSCULAR HGB CONC 33.8 g/dL (32.0-36.0); MEAN CORPUSCULAR VOLUME 98.3 fL (80.0-94.0); MEAN PLATELET VOLUME 9.2 fL (7.4-11.4); RED BLOOD COUNT 3.58 10^6/uL (4.70-6.10); RED CELL DISTRIBUTION WIDTH 12.5 % (12.0-15.0); WHITE BLOOD COUNT 11.2 x10^3/uL (4.8-10.8)
[2020-02-06 05:35] LABS: CALCIUM 8.5 mg/dL (8.5-10.3); CREATININE 0.7 mg/dL (0.6-1.2)
[2020-02-06 06:37] LABS: ALBUMIN 3.8 g/dL (3.2-5.5); ALBUMIN/GLOBULIN RATIO 1.3 (1.0-2.2); BILIRUBIN,TOTAL 1.1 mg/dL (0.2-1.0); CALCIUM 8.6 mg/dL (8.5-10.3); CREATININE 0.7 mg/dL (0.6-1.2); TOTAL PROTEIN 6.7 g/dL (6.7-8.2)
[2020-02-06] MEDS ORDERED: NS W/20 MEQ KCL 1,000 ML IV SCH (07:00)
[2020-02-06 07:30] VITALS: BP 131/80
[2020-02-06] MEDS: INSULIN ASPART 300 UNIT/3 ML PEN SUBQ SCH ×2 (08:05→11:18)
[2020-02-06] MEDS: SENNA 8.6 MG TABLET PO SCH (08:07)
[2020-02-06] MEDS ORDERED: DULoxetine 30 MG CAPSULE PO SCH (09:00)
[2020-02-06] MEDS ORDERED: POTASSIUM CHLORIDE 20 MEQ TABLET PO ONE (09:00)
[2020-02-06] MEDS ORDERED: METOPROLOL SUCCINATE 50 MG TABLET PO SCH (09:00)
[2020-02-06] MEDS ORDERED: GABAPENTIN 300 MG CAPSULE PO SCH (09:00)
[2020-02-06] MEDS ORDERED: ASPIRIN EC 81 MG TABLET PO SCH (09:00)
[2020-02-06] MEDS ORDERED: lisinopriL 5 MG TABLET PO SCH (09:00)
[2020-02-06] MEDS ORDERED: ENOXAPARIN 40 MG/0.4 ML SYRINGE SUBQ SCH (09:00)
--- NOTE | 2020-02-06 10:53 | Discharge Plan ---
Discharge Plan Problem Reviewed?: Yes Disposition: Home, Self Care Condition: Stable Diet: Diabetic Activity Restrictions: No Restrictions Shower Restrictions: No Driving Restrictions: No Weight Bearing: Full Weight Health Concerns: Opiate induced Constipation Take senna 2 tabs twice daily (if the result is overly loose bowels, 1 senna tab twice daily is ok) If you dont have a BM daily on senna, take miralax 17 grams if you havent had a Bowel movement in more than a day. (In the hospital you were given lactulose syrup to help have a BM (and miralax and senna) with successful results) ( You were admitted with confusion, and generalized weakness over several days. Infection was considered, but there was no acute source of infection identified. CT head showed nothing acute (it was not a great quality CT due to movement) Your urinalysis has a culture running which has not yet resulted, but you did not have symptoms of a urinary tract infection. You did get antibiotics in the emergency room intially, I will contact you if the urine culture result is at all concerning You started long acting morphine early last week. That appears to have been the cause of your problems this week. The morphine (opiate) caused significant constipation which resulted in nausea, poor oral intake, and intravascular "dryness" which resulted in slower clearance of the long acting morphine from your body (and likely slower clearance of other medications you take such as gabapentin. All of that can add up to cause confusion. After holding the morphine and gabapentin, and no ambien last night, your mentation is back to normal. Regarding Gabapentin, you can resume your home dose but consider discussing with your PCP reducing dose to 900 mg 3x/ day. It is not clear there is much benefit in taking 1200 mg 3x/day. Plan of Treatment: Stop long acting morphine You noted you still have oxycodone short acting (5 mg tablets at home) Resume the as needed 5 mg oxycodone There are 15 mg tablets of ms contin if Dr Levin in the future wants to reconsider the long acting form. Bowel regimen as noted above Additional Instructions or Follow Up instructions: Routine follow up with your PCP and Dr. Levin No Smoking: If you smoke, Please STOP! Call for help. Follow-up with: Gisele Lyon PA-C [Primary Care Provider] -
--- NOTE | 2020-02-07 20:37 | DISCHARGE SUMMARY ---
Physician: ELY Maxwell DATE OF ADMISSION: 02/05/2020 DATE OF DISCHARGE: 02/06/2020 PRIMARY CARE PHYSICIAN: Dr. Gisele Lyon. PRIMARY ADMISSION DIAGNOSIS: Acute delirium. PRINCIPAL DISCHARGE DIAGNOSES 1. Acute delirium due to medication side effect. 2. Constipation due to opioid therapy. 3. Drug-Drug interaction. 4. Volume depletion. 5. Leukocytosis. 6. Diabetes. CONSULTATIONS: None. PROCEDURES: None. DIAGNOSTIC IMAGING STUDIES: Patient had a head CT 02/04. Study was limited by motion artifact, but there was no definite acute abnormality noted. Chest x-ray 02/05/2020, ill-defined right costophrenic angle opacity with small right pleural effusions, minimal streaky bibasilar opacities with a small right pleural effusion. 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 LABORATORY DATA: Admission white count 11.9 with no bands, hemoglobin 14, hematocrit 41, platelets 241,000. On discharge, white count 11.2, hemoglobin and hematocrit and platelets unchanged. Admission chemistries notable only for potassium of 3.1. BUN and creatinine were normal at 18 and 0.7. Admission urinalysis, trace protein, greater than 80 ketones, scant blood, 6-10 white cells per high power field, final urine culture with no growth. A tox screen showed positive cannabis and positive opiates. Coronavirus PCR was negative. BRIEF HOSPITAL COURSE BY PROBLEM Patient is a 61-year-old gentleman who has been getting chemotherapy treatment under the care of Dr. Levin for bladder cancer for several months. In the past week, he started long-acting MS Contin 30 mg twice daily on Tuesday. Several days later, his noted that he was less active and had less appetite and had vomited at least once. He had no bowel movement in multiple days. There was no fever, no shortness of breath, no cough, no diarrhea. She brought him to the emergency room because of the reduced activity. Initially, there was concern for an infectious process given a lactate of 2.9; however, he was afebrile, had adequate room air oxygenation and workup for infectious process was nonrevealing 1) Delerium due to medication side effect and drug drug interaction; Once the full history was obtained the primary culprit for the delerium seemed to be multifactorial; with the start of the long-acting opiate, inducing obstipation causing him to be nauseated and the reduced PO intake and volume depletion precipitate drug-drug interactions with his gabapentin and his opiate. The 60 mg daily dose of MS contin was disproportionate with the approximate 4-6 tabs of 5 mg oxycodone he had been taking. He was admitted overnight for gentle volume repletion. His MS Contin was held as well as his gabapentin and his mentation was much cleared on the subsequent day. He was discharged home with instructions to no longer take the MS Contin. He can resume his short-acting oxycodone 5 mg if needed p.r.n. every 4 hours and his other medications could resume. It was also noted that his gabapentin is a relatively high dose at 1200 mg t.i.d. It was advised that his consider discussing with PCP whether to reduce that to 900 mg p.o. t.i.d. Per clinical pharmacist at , little added benefit at this 1200mg tid dose. His other medications can resume as previously. 2. Opiate-induced constipation. He was advised to start a regimen of senna 2 tabs twice daily and also if he does not have a bowel movement daily on the senna, he should take MiraLax 17 grams. DISCHARGE MEDICATIONS 1. Continue his duloxetine 60 mg once daily. 2. Metformin 500 mg twice daily. 3. Metoprolol succinate 50 mg once daily. 4. Gabapentin 1200 mg 3 times daily. 5. Atorvastatin 80 mg once each evening. 6. Lisinopril 5 mg once daily. 7. Zolpidem 10 mg once daily. 8. Lasix 20 mg daily. 9. Aspirin 81 mg daily. 10. Oxycodone 5 mg every 6 hours if needed. 11. He is to stop his MS Contin and aspirin 81 mg once daily. DISCHARGE PHYSICAL EXAMINATION VITAL SIGNS: He was afebrile, heart rate 88-102, blood pressure 131/80 and 126/88, room air oxygenation was 98%. GENERAL: Patient is a generous sized older gentleman lying in bed, slightly disconjugate gaze at baseline. He is alert and appropriate. Able to correctly answer orientation questions, but he was unable to do the prior day. He is taking oral intake without difficulty and getting up to the bathroom and having several bowel movements. His respirations are unlabored. LUNGS: Clear to auscultation. There is no cough. CARDIOVASCULAR: Has a regular S1, S2, with no appreciable extra sounds. He has a very generous abdomen. ABDOMEN: Nontender, nondistended with positive bowel sounds compared with hypoactive bowel sounds the prior day. His lower extremities are without edema. cc: Gisele Lyon PA-C TD: 02/07/2020 18:35 MTD
== END 2020-02-06 12:00 | disposition home or self-care (01) ==
LOC: ED 10:20 → MS2 13:30
PROVIDERS: ADMIT Nurse Practitioner; ATTEND Nurse Practitioner
DX: R41.0 Disorientation, unspecified (principal); T40.2X5A Adverse effect of other opioids, initial encounter; T42.6X5A Adverse effect of other antiepileptic and sedative-hypnotic drugs, initial encounter; K59.03 Drug induced constipation; E86.9 Volume depletion, unspecified; I25.10 Atherosclerotic heart disease of native coronary artery without angina pectoris; E11.9 Type 2 diabetes mellitus without complications; Z79.84 Long term (current) use of oral hypoglycemic drugs; D72.829 Elevated white blood cell count, unspecified; Z20.828 Contact with and (suspected) exposure to other viral communicable diseases
CPT/HCPCS: 36415; 51701; 51798; 70450; 71045; 80048; 80053; 81001; 83036; 83605; 83690; 83735; 84443; 85025; 85027; 87040; 87086; 96361; 96365; 96366; 96367; 96372; 96375; 96376; 99285; A9270; G0378; J1650; J2060; J3370; U0004; 80306; 80307; 80320; 80329; 81003

== ENCOUNTER 2021-01-13 12:21 | Outpatient (CLI) | payer MEDICARE, BC | END 2021-01-13 12:22 | disposition short-term general hospital (02) | LOC: EMS 12:21 | DX: R53.1 Weakness (principal) | CPT/HCPCS: A0425; A0429 ==

== ENCOUNTER 2021-02-26 15:07 | Outpatient (CLI) | payer MEDICARE, BC | END 2021-02-26 15:08 | disposition short-term general hospital (02) | LOC: EMS 15:07 | DX: R41.82 Altered mental status, unspecified (principal); R44.3 Hallucinations, unspecified | CPT/HCPCS: A0425; A0429 ==

== ENCOUNTER 2021-03-26 16:19 | Outpatient (CLI) | payer MEDICARE, BC | END 2021-03-26 16:20 | disposition short-term general hospital (02) | LOC: EMS 16:19 | DX: R41.82 Altered mental status, unspecified (principal); R53.1 Weakness | CPT/HCPCS: A0425; A0427 ==